=== PATIENT | male | born 1990 | race African-American/Black ===

== ENCOUNTER 2019-01-17 00:49 | Emergency (ER) | payer MEDICAID ==
[~2019-01-17] VITALS: Ht 167.6 cm; Wt 59.0 kg
[2019-01-17 00:56] VITALS: BP 142/86
== END 2019-01-17 02:30 | disposition left against medical advice (07) ==
LOC: ER 00:49
DX: Z53.21 Procedure and treatment not carried out due to patient leaving prior to being seen by health care provider (principal)

== ENCOUNTER 2019-02-11 23:46 | Emergency (ER) | payer MEDICAID ==
[~2019-02-11] VITALS: Ht 172.7 cm; Wt 68.0 kg
[2019-02-12] MEDS ORDERED: ONDANSETRON HCL 4MG/2ML INJ IV STA (00:52)
[2019-02-12] MEDS ORDERED: SODIUM CHLORIDE 0.9% 1000ML BAG (SEPSIS BOLUS) IV ONE (01:00)
[2019-02-12] MEDS ORDERED: VANCOMYCIN 1 G PREMIX 200 ML IV ONE (01:00)
[2019-02-12] MEDS ORDERED: PIPERACILLIN/TAZ 3.375G PREMIX 50 ML IV ONE (01:00)
[2019-02-12 02:13] LABS: BASOPHILS % 0.4 % (0.0-2.0); EOSINOPHILS % 0.9 % (0.0-5.0); HEMATOCRIT. 32.8 % (42.0-52.0); HEMOGLOBIN. 10.9 g/dL (14.0-18.0); LYMPHOCYTES % 28.5 % (20.0-50.0); MEAN CORPUSCULAR VOLUME 87.5 fL (80.0-94.0); MEAN PLATELET VOLUME 6.8 fl (7.4-10.4); MONOCYTES % 8.2 % (2.0-8.0); PLATELET 368 x1000/uL (130-400); RED BLOOD CELL COUNT 3.75 mill/uL (4.7-6.1)
[2019-02-12 02:17] LABS: CHLORIDE 102 mEq/L (98-107)
[2019-02-12 02:21] LABS: ETHANOL BLOOD < 10 mg/dL
[2019-02-12 02:32] LABS: CREATINE KINASE 141 IU/L (39-308)
[2019-02-12 06:04] LABS: CLARITY URINE CLOUDY (CLEAR); COLOR URINE YELLOW (YELLOW); KETONES URINE NEGATIVE (NEGATIVE); LEUKOCYTE ESTERASE URINE NEGATIVE (NEGATIVE); NITRITE URINE NEGATIVE (NEGATIVE); OCCULT BLOOD URINE NEGATIVE (NEGATIVE); PH URINE 6.5 (4.5-8.0); PROTEIN URINE NEGATIVE (NEGATIVE); SPECIFIC GRAVITY URINE 1.021 (1.005-1.030)
[2019-02-12 06:16] LABS: *AMPHETAMINES SCREEN URINE PRESUMTIVE POSITIVE (NEGATIVE); *BARBITURATES SCREEN URINE NEGATIVE (NEGATIVE); *BENZODIAZEPINES SCREEN URINE NEGATIVE (NEGATIVE); *COCAINE SCREEN URINE PRESUMTIVE POSITIVE (NEGATIVE); METHADONE URINE SCREEN NEGATIVE (NEGATIVE); OPIATES URINE SCREEN PRESUMTIVE POSITIVE (NEGATIVE)
[2019-02-12 06:17] LABS: CANNABINOID URINE SCREEN NEGATIVE (NEGATIVE); PHENCYCLIDINE URINE SCREEN NEGATIVE (NEGATIVE)
[2019-02-12 07:48] VITALS: BP 101/74
== END 2019-02-12 08:26 | disposition home or self-care (01) ==
LOC: ER 23:46 → CANBEDREQ 02-12 07:16 → ER 02-12 08:26
DX: L03.116 Cellulitis of left lower limb (principal); F15.10 Other stimulant abuse, uncomplicated; Z59.0 Homelessness
CPT/HCPCS: 36415; 71045; 73590; 73700; 80053; 80305; 80320; 81003; 82550; 83605; 84145; 85025; 87040; 93971; 96361; 96365; 96366; 96368; 96375; 99284; J2405; J2543; J3370; J7030; G0480

== ENCOUNTER 2020-12-18 23:12 | Emergency (ER) | payer MEDICAID, OTHER ==
[~2020-12-18] VITALS: Ht 175.3 cm; Wt 73.0 kg
[2020-12-18] MEDS ORDERED: SODIUM CHLORIDE 0.9% 1,000 ML IV ONE (23:45)
[2020-12-19 00:03] LABS: BASOPHILS % 0.5 % (0.0-2.0); EOSINOPHILS % 0.8 % (0.0-5.0); HEMATOCRIT. 44.7 % (42.0-52.0); HEMOGLOBIN. 15.3 g/dL (14.0-18.0); LYMPHOCYTES % 36.3 % (20.0-50.0); MEAN CORPUSCULAR HEMOGLOBIN 30.5 pg (28.0-32.0); MEAN CORPUSCULAR VOLUME 88.9 fL (80.0-94.0); MEAN PLATELET VOLUME 7.7 fl (7.4-10.4); NEUTROPHILS % 51.4 % (40.0-76.0); PLATELET 313 x1000/uL (130-400); RED BLOOD CELL COUNT 5.02 mill/uL (4.7-6.1); RED CELL DISTRIBUTION WIDTH 12.7 % (11.6-14.6)
[2020-12-19 00:11] LABS: CHLORIDE 108 mEq/L (98-107)
[2020-12-19 00:16] LABS: ETHANOL BLOOD < 10 mg/dL
[2020-12-19] MEDS ORDERED: NALO4SPR BOTHNSTRLS (02:13)
[2020-12-19 03:25] VITALS: BP 122/55
== END 2020-12-19 03:15 | disposition home or self-care (01) ==
LOC: ER 23:12
DX: T50.901A Poisoning by unspecified drugs, medicaments and biological substances, accidental (unintentional), initial encounter (principal); R41.82 Altered mental status, unspecified; F15.10 Other stimulant abuse, uncomplicated; Y92.018 Other place in single-family (private) house as the place of occurrence of the external cause
CPT/HCPCS: 36415; 70450; 71045; 80053; 80307; 80320; 80329; 85025; 93005; 96360; 99285; J7030; G0480

== ENCOUNTER 2021-09-20 17:15 | Emergency (ER) | payer MEDICAID, OTHER ==
[~2021-09-20] VITALS: Ht 172.7 cm; Wt 85.0 kg
[~2021-09-20 17:15] MED LIST: NALO4SPR BOTHNSTRLS
[2021-09-20 17:50] VITALS: BP 133/88
== END 2021-09-21 00:42 | disposition left against medical advice (07) ==
LOC: ER 17:15
DX: Z53.21 Procedure and treatment not carried out due to patient leaving prior to being seen by health care provider (principal)